=== PATIENT | female | born 1975 | race Caucasian/White ===

== ENCOUNTER 2017-11-12 00:49 | Emergency (ER) | payer MEDICAID ==
[~2017-11-12] VITALS: Ht 144.8 cm; Wt 63.0 kg
[~2017-11-12 00:49] MED LIST: ASPIR 8181 MG PO; BG MC; COL100 PO; INSULIN HUMA100 U/M1 IV; LEVEMIR100 U/M1 SC; METFORMIN HCL1000 MG PO; NORCO1 TA2 PO; REGLAN10 MG PO
[2017-11-12 00:58] VITALS: Ht 144.8 cm; Wt 63.0 kg
[2017-11-12 02:22] VITALS: BP 137/79
== END 2017-11-12 02:23 | disposition home or self-care (01) ==
LOC: ED 00:49
DX: J98.8 Other specified respiratory disorders (principal); J32.8 Other chronic sinusitis; E11.9 Type 2 diabetes mellitus without complications; H92.02 Otalgia, left ear; Z88.0 Allergy status to penicillin
CPT/HCPCS: 87804; J1885

== ENCOUNTER 2018-10-01 06:02 | Emergency (ER) | payer MEDICAID ==
[2018-10-01 06:13] VITALS: Ht 157.5 cm
[2018-10-01 07:29] LABS: BASOPHIL % 0.3 % (0-2); PLATELET COUNT 273 x10^3mcL (130-400); RED CELL DISTRIBUTION WIDTH 12.4 % (11.5-14.5)
[2018-10-01 07:41] LABS: CALCIUM 8.7 mg/dL (8.5-10.1); CARBON DIOXIDE 25.7 mmol/L (21-32); CHLORIDE SERUM 101 mmol/L (98-107); CREATININE SERUM 0.6 mg/dL (0.6-1.0); GFR1 > 60 mL/min; GLUCOSE SERUM 336 mg/dL (74-106); POTASSIUM SERUM 3.3 mmol/L (3.5-5.1); SODIUM SERUM 138 mmol/L (136-145)
[2018-10-01 07:46] LABS: ALBUMIN 3.5 g/dL (3.4-5.0); ALKALINE PHOSPHATASE 110 U/L (46-116); ALT/SGPT 89 U/L (14-59); AST/SGOT 46 U/L (15-37); BILIRUBIN TOTAL 0.24 mg/dL (0.20-1.00); TOTAL PROTEIN, SERUM 7.1 g/dL (6.4-8.2)
[2018-10-01 08:16] LABS: microscopic required? YES; urine erythrocyte TRACE (NEGATIVE)
[2018-10-01 08:36] LABS: AMPHETAMINE QUAL UR NONE DETECTED (See below)
[2018-10-01 11:51] VITALS: BP 114/68
== END 2018-10-01 11:51 | disposition home or self-care (01) ==
LOC: ED 06:02
PROVIDERS: Emergency Medicine
DX: R42 Dizziness and giddiness (principal); R07.89 Other chest pain; R20.2 Paresthesia of skin; R51 Headache; R06.02 Shortness of breath; R11.10 Vomiting, unspecified; E11.9 Type 2 diabetes mellitus without complications; Z88.0 Allergy status to penicillin
CPT/HCPCS: 83880; 87804; J2765; J7030; J8597

== ENCOUNTER 2018-11-30 00:23 | Emergency (ER) | payer MEDICAID ==
[~2018-11-30] VITALS: Ht 165.1 cm; Wt 62.6 kg
[2018-11-30 00:31] VITALS: Ht 165.1 cm; Wt 62.6 kg
[2018-11-30 01:18] LABS: BASOPHIL % 0.5 % (0-2); CALCIUM 9.2 mg/dL (8.5-10.1); CARBON DIOXIDE 27.3 mmol/L (21-32); CHLORIDE SERUM 100 mmol/L (98-107); CREATININE SERUM 0.6 mg/dL (0.6-1.0); GFR1 > 60 mL/min; GLUCOSE SERUM 349 mg/dL (74-106); PLATELET COUNT 284 x10^3mcL (130-400); POTASSIUM SERUM 3.8 mmol/L (3.5-5.1); RED CELL DISTRIBUTION WIDTH 12.2 % (11.5-14.5); SODIUM SERUM 135 mmol/L (136-145)
[2018-11-30 01:23] LABS: ALBUMIN 3.7 g/dL (3.4-5.0); ALKALINE PHOSPHATASE 111 U/L (46-116); ALT/SGPT 71 U/L (14-59); AST/SGOT 36 U/L (15-37); BILIRUBIN TOTAL 0.24 mg/dL (0.20-1.00); TOTAL PROTEIN, SERUM 7.5 g/dL (6.4-8.2)
[2018-11-30 03:24] VITALS: BP 124/73
== END 2018-11-30 03:24 | disposition home or self-care (01) ==
LOC: ED 00:23
PROVIDERS: Emergency Medicine
DX: R03.0 Elevated blood-pressure reading, without diagnosis of hypertension (principal); R07.89 Other chest pain; E11.65 Type 2 diabetes mellitus with hyperglycemia; Z88.0 Allergy status to penicillin
CPT/HCPCS: 82962; J2765; J7030; Q0092

== ENCOUNTER 2019-05-17 15:53 | Emergency (ER) | payer MEDICAID ==
[~2019-05-17] VITALS: Ht 152.4 cm; Wt 60.3 kg
[2019-05-17 16:07] VITALS: Ht 152.4 cm; Wt 60.3 kg
[2019-05-17 19:19] VITALS: BP 147/62
== END 2019-05-17 19:19 | disposition home or self-care (01) ==
LOC: ED 15:53
DX: R05 Cough (principal); R50.9 Fever, unspecified; R09.82 Postnasal drip; M79.10 Myalgia, unspecified site; E11.9 Type 2 diabetes mellitus without complications; Z88.0 Allergy status to penicillin
CPT/HCPCS: Q0092

== ENCOUNTER 2019-06-29 01:48 | Inpatient (IN) | payer MEDICAID ==
[~2019-06-29] VITALS: Ht 165.1 cm; Wt 65.8 kg
--- NOTE | 2019-06-29 02:17 | NUR ---
PT. PRESENTS TO THE ER C/O CHEST PAIN 07/05, PRESSURE, RADIATING TO THE LEFT ARM, HEADACHE 07/05 PRESURE, N/V X 3 EPISODES SINCE 1200 AM, PT. STATES SHE WAS ASLEEP & THE PAIN WOKE HER UP, FOLLOWING VOMITTING EPISODES, DENIES FEVER & CHILLS, DENIES URINARY SYMPTOMS, PT. LAYING IN BED, AAOX4, PLACED ON CM NSR, PULSE OX, PENDING MSE, AT BEDSIDE, VSS, WILL MONITOR.
--- NOTE | 2019-06-29 02:55 | NUR ---
PUSHED TORADOL IVP PER ORDER, PT. C/O BURNING & FEELING ITCHY, REPORTED TO DR. MENDOZA, NEW ORDER FOR BENADRYL OBTAINED, PT. DENIES SOB, OR SWELLING IN THROAT,
[2019-06-29 03:02] LABS: BASOPHIL % 0.3 % (0-2); PLATELET COUNT 276 x10^3mcL (130-400); RED CELL DISTRIBUTION WIDTH 12.4 % (11.5-14.5)
[2019-06-29 03:10] LABS: CALCIUM 9.2 mg/dL (8.5-10.1); CARBON DIOXIDE 29.8 mmol/L (21-32); CHLORIDE SERUM 103 mmol/L (98-107); CREATININE SERUM 0.6 mg/dL (0.6-1.0); GFR1 > 60 mL/min; GLUCOSE SERUM 326 mg/dL (74-106); POTASSIUM SERUM 3.6 mmol/L (3.5-5.1); SODIUM SERUM 139 mmol/L (136-145)
[2019-06-29 03:15] LABS: ALBUMIN 3.5 g/dL (3.4-5.0); ALKALINE PHOSPHATASE 127 U/L (46-116); ALT/SGPT 62 U/L (14-59); AST/SGOT 29 U/L (15-37); BILIRUBIN TOTAL 0.13 mg/dL (0.20-1.00)
--- NOTE | 2019-06-29 03:19 | NUR ---
D/C LEFT FOREARM IV, CATHETER INTACT, PT. TOLERATED WELL, PT. C/O IT HURT A LOT, & REQUESTED A NEW SITE,
--- NOTE | 2019-06-29 04:20 | NUR ---
PT. LAYING IN BED, SLEEPING, AROUSABLE TO TOUCH, NO RESPIRATORY DISTRESS NOTED, PAIN LEVEL DECREASED TO 6/10, STATES SHE IS FEELING BETTER, VSS, PT. ADMITTED PENDING REPORT, WILL MONITOR, AT BEDSIDE
--- NOTE | 2019-06-29 04:59 | NUR ---
CALLED FOR REPORT, PER [facility] CHARGE, ADMITING NURSE IS UNABLE TO TAKE REPORT AT THIS TIME, SHE WILL CALL BACK TO GET REPORT. CN MADE AWARE
--- NOTE | 2019-06-29 05:01 | NUR ---
SPOKE TO CHARGE NURSE CORI AND WAS TOLD THAT THEY ARE UNABLE TO TAKE REPORT AT THIS TIME.
--- NOTE | 2019-06-29 05:14 | NUR ---
REPORT GIVEN TO MARIA EUGENIA POPE RN
[2019-06-29 05:33] LABS: UA SPECIFIC GRAVITY <=1.005 (1.005-1.035); microscopic required? YES; urine erythrocyte 1+ (NEGATIVE)
[2019-06-29 05:40] LABS: AMPHETAMINE QUAL UR NONE DETECTED (See below)
--- NOTE | 2019-06-29 05:44 | NUR ---
RECEIVED REPORT FROM SPINE SUPERVISOR. PT IS ALERT AND ORIENTED X4. PUPILS REACTIVE TO LIGHT. PT IS BREATHING E/U ON RA. LUNG SOUNDS CLEAR TO BILATERAL UPPER LOBES, DIMINISHED TO BILATERAL LOWER LOBES. S1 S2 HEART SOUNDS AUSCULTATED. PT NOT COMPLAINING OF ANY CHEST PAIN AT THIS TIME. PULSES MODERATE X4. CAP REFILL <3 SECS X4. SKIN IS WARM AND CONSISTENT WITH ETHNICITY. PERIPHERAL IV TO RFA PATENT, DRESSING CDI. ABD IS SOFT AND ROUNDED WITH ACTIVE BOWEL SOUNDS X4Q. PT ABLE TO WALK INDEPENDENTLY. PT VOIDS FREELY AT BEDSIDE BATHROOM. ALL QUESTIONS AND CONCERNS ANSWERED. WILL CONTINUE TO MONITOR.
[2019-06-29 06:11] VITALS: BP 120/69
--- NOTE | 2019-06-29 07:30 | NUR ---
PT IS AOX3. PUPILS REACTIVE TO LIGHT. PT IS BREATHING E/O ON RA. LUNG SOUNDS CLEAR TO BILATERAL UPPER LOBES. DIMINISHED TO BILATERAL LOWER LOBES. S1 S2 HEART SOUNDS AUSCULTATED. PERIPHERAL IV TO RFA PATENT, DRESSING CDI. PULSES MODERATE X4. CAP REFILL <3 SECS X4. SKIN IS WARM AND CONSISTENT WITH ETHNICITY. NS INFUSING AT 100 ML/HR. ABD IS SOFT AND ROUNDED WITH ACITVE BOWEL SOUNDS X4Q. PT VOIDS FREELY WITH BEDSIDE COMMODE. PT ON CARDIAC DIET. ALL QUESTIONS AND CONCERNS ANSWERED. WILL CONTINUE TO MONITOR.
[2019-06-29 08:49] VITALS: BP 143/79
[2019-06-29] MEDS ORDERED: GOOD SENSE OMEP20 MG PO (11:28)
--- NOTE | 2019-06-29 12:00 | NUR ---
ZAIRE, PHYSICAL THERAPY COORDINATOR AT BEDSIDE FOR UPDATES. ALL QUESTIONS AND CONCERNS ANSWERED. PT STATES THAT SHE WOULD LIKE TO BE DISCHARGED TODAY BECAUSE SHE HAS A YOUNG SON AT HOME WITH NO ONE TO WATCH HIM. ZAIRE PHYSICAL THERAPY COORDINATOR REVIEWED CHART, AND STATED THAT PATIENT SAFE TO DISCHARGE.
[2019-06-29 12:37] VITALS: BP 143/79
--- NOTE | 2019-06-29 13:00 | NUR ---
PT PROVIDED WITH DISCHARGE PAPERWORK AND EDUCATION. ALL QUESTIONS AND CONCERNS ANSWERED. ALL FORMS WERE SIGNED, AND ADDED TO CHART.
--- NOTE | 2019-07-02 16:51 | NUR ---
Surendra haney 06/29/19 at 1300 [facility] given patient by Rose Fonseca.
== END 2019-06-29 13:05 | disposition home or self-care (01) | DRG 243 ==
LOC: ED 01:48 → DU 03:55
PROVIDERS: Emergency Medicine; ADMIT Internal Medicine
DX: K21.9 Gastro-esophageal reflux disease without esophagitis (principal); E11.9 Type 2 diabetes mellitus without complications; Z79.82 Long term (current) use of aspirin; Z79.84 Long term (current) use of oral hypoglycemic drugs
CPT/HCPCS: 82962; G0378; J1200; J1885; J2405; J7030; Q0092

== ENCOUNTER 2019-07-08 00:03 | Emergency (ER) | payer MEDICAID ==
[~2019-07-08] VITALS: Ht 154.9 cm; Wt 63.0 kg
[~2019-07-08 00:03] MED LIST changes: +GOOD SENSE OMEP20 MG PO
[2019-07-08 00:08] VITALS: Ht 154.9 cm; Wt 63.0 kg
[2019-07-08 00:56] LABS: BASOPHIL % 0.3 % (0-2); PLATELET COUNT 270 x10^3mcL (130-400); RED CELL DISTRIBUTION WIDTH 12.4 % (11.5-14.5)
[2019-07-08 01:04] LABS: CALCIUM 9.5 mg/dL (8.5-10.1); CARBON DIOXIDE 27.4 mmol/L (21-32); CHLORIDE SERUM 99 mmol/L (98-107); CREATININE SERUM 0.7 mg/dL (0.6-1.0); GFR1 > 60 mL/min; GLUCOSE SERUM 410 mg/dL (74-106); POTASSIUM SERUM 4.1 mmol/L (3.5-5.1); SODIUM SERUM 135 mmol/L (136-145)
[2019-07-08 04:24] VITALS: BP 125/59
== END 2019-07-08 04:24 | disposition home or self-care (01) ==
LOC: ED 00:03
PROVIDERS: Emergency Medicine
DX: R07.89 Other chest pain (principal); R11.0 Nausea; I10 Essential (primary) hypertension; E11.9 Type 2 diabetes mellitus without complications; F41.9 Anxiety disorder, unspecified; Z98.890 Other specified postprocedural states
CPT/HCPCS: 82962; J1885; J2405; J7030; Q0092

== ENCOUNTER → 2019-08-03 | Outpatient (CLI) | payer MEDICAID ==
[2019-08-03 09:55] LABS: CHOLESTEROL/HDL RATIO 6.9
== END | disposition home or self-care (01) ==
LOC: LB 09:04
PROVIDERS: General Practice
DX: E11.9 Type 2 diabetes mellitus without complications (principal)
CPT/HCPCS: 87338